=== PATIENT | male | born 1965 | race Caucasian/White ===

== ENCOUNTER 2021-06-21 04:19 | Emergency (ER) | payer OTHER ==
[~2021-06-21] VITALS: Ht 188 cm; Wt 152.0 kg
[2021-06-21] MEDS ORDERED: MIRAPEX 0.250.25 M1 PO (04:45)
[2021-06-21] MEDS ORDERED: ASA81BEC PO (04:45)
[2021-06-21] MEDS ORDERED: DOVATO 50-3001 EACH PO (04:45)
[2021-06-21] MEDS ORDERED: NORVASC10 MG PO (04:46)
[2021-06-21] MEDS ORDERED: LISINOPRIL20 MG PO (04:46)
[2021-06-21] MEDS ORDERED: PROTONIX40 M2 PO (04:46)
[2021-06-21] MEDS ORDERED: CARVEDILOL12.5 MG PO (04:47)
[2021-06-21 05:23] LABS: ABSOLUTE BASOPHILS 0.1 thou/uL (0.0-0.2); ABSOLUTE EOSINOPHILS 0.1 thou/uL (0.0-0.7); ABSOLUTE LYMPHOCYTES 1.6 thou/uL (0.8-5.3); ABSOLUTE MONOCYTES 0.8 thou/uL (0.0-1.2); ABSOLUTE NEUTROPHILS 8.2 thou/uL (1.6-8.1); BASOPHILS 0.8 %; EOSINOPHILS 1.1 %; HEMATOCRIT 44.1 % (42.0-52.0); LYMPHOCYTES 15.1 %; MCH 29.2 pg (26.0-34.0); MCHC 34.1 g/dL (28.0-37.0); MCV 85.6 fL (80.0-100.0); MONOCYTES 7.3 %; MPV 7.2 fl. (7.2-11.1); NUCLEATED RBCS 0 /100WBC; PLATELET COUNT* 255 thou/uL (150-400); POLYS 75.7 %; RBC 5.15 mil/uL (4.50-6.00); RDW-CV 13.5 % (10.5-14.5); WBC 10.8 thou/uL (4.0-11.0)
[2021-06-21 05:31] LABS: CALCIUM 8.9 mg/dL (8.5-10.1); CREATININE 1.1 mg/dL (0.6-1.3); POTASSIUM 3.9 mmol/L (3.5-5.1)
[2021-06-21 05:38] LABS: TOTAL BILIRUBIN 0.5 mg/dL (<0.1-1.0); TOTAL PROTEIN 7.8 g/dL (6.4-8.2)
[2021-06-21] MEDS ORDERED: CARAFATE1 GM PO (07:48)
[2021-06-21] MEDS ORDERED: ZOFRAN ODT4 MG DISSOLVE (07:48)
[2021-06-21 08:00] VITALS: BP 150/94
--- NOTE | 2021-06-22 10:30 | EKG ---
[place] [address] ELECTROCARDIOGRAM REPORT Name: ADAL VILLAGOMEZ [id number] Admission: 06/21/21 Attend Phys: Discharge: 06/21/21 Date of : 61 Date of Service: 06/21/21 0503 Report #: [id number] THIS REPORT FOR: //name// [facility] ED Test Date: 2021-06-21 Test Time: 05:03:12 Pat Name: ADAL VILLAGOMEZ Department: Room: Gender: [employer]: : 1965 Requested By: Raquel Arevalo Order Number: [id number] MD: Lamine Gaitan Measurements Intervals [place] Rate: 70 P: 58 NH: 176 QRS: 33 QRSD: 99 T: 41 QT: 379 QTc: 409 Interpretive Statements Sinus rhythm No previous ECG available for comparison Electronically Signed On 06-22-2021 10:30:12 POLITICAL AIDE by Lamine Gaitan [email or web address] <ELECTRONICALLY SIGNED> By: Lamine Gaitan MD, [facility] 06/22/21 1030 0503 0503 Lamine Gaitan MD, FACC /EPI
== END 2021-06-21 08:00 | disposition home or self-care (01) ==
LOC: M.ERS 04:19
PROVIDERS: Emergency Medicine
DX: R10.13 Epigastric pain (principal); Z79.899 Other long term (current) drug therapy; Z88.2 Allergy status to sulfonamides